=== PATIENT | female | born 1975 | race African-American/Black ===

== ENCOUNTER 2020-07-19 10:16 | Outpatient (REF) | payer MEDICAID, SELFPAY ==
[2020-07-19 11:17] LABS: Hemoglobin 8.3 g/dl (12.0-16.0); Mean Corpuscular HGB Conc 26.8 g/dl (31.0-35.0); Mean Corpuscular Hemoglobin 17.7 pg (27.0-33.0); Mean Corpuscular Volume 66.1 fL (80-98); Mean Platelet Volume 9.4 fL (9.4-12.3); Platelet Count 593 X10*3/uL (160-400); Red Blood Count 4.69 X10*6/uL (4.20-5.50); Red Cell Distribution Width 18.1 % (11.0-16.0); White Blood Count 4.9 X10*3/uL (4.8-10.8)
[2020-07-19 11:36] LABS: Alanine Aminotransferase 24 U/L (0-31); Albumin Level 4.1 g/dL (3.5-5.0); Alkaline Phosphatase 80 U/L (39-117); Anion Gap 14 (12-20); Aspartate Amino Transferase 21 U/L (5-31); Bilirubin Total 0.6 mg/dL (0.0-1.0); Blood Urea Nitrogen 14 mg/dL (9-16); Calcium 9.3 mg/dL (8.4-10.2); Carbon Dioxide 30 mmol/L (22-29); Chloride 100 mmol/L (96-108); Cholesterol 178 mg/dL; Estimated Glomerular Filt Rate > 60; Glucose Random 93 mg/dL (60-115); HDL Cholesterol 41 mg/dL; LDL Cholesterol Calculated 118 mg/dl; Potassium 3.9 mmol/L (3.3-5.1); Sodium 140 mmol/L (135-145); Total Protein 7.6 g/dL (6.5-8.0); Triglycerides 99 mg/dL
[2020-07-19 11:59] LABS: Vitamin D 25-OH Total 25.6 ng/mL (>30)
[2020-07-19 12:00] LABS: Ferritin < 1 ng/mL (10-250)
[2020-07-21 03:40] LABS: HIV AB/AG Nonreactive (Nonreactive); HIV Num 1 0.06 S/CO (0.00-0.99)
[2020-07-21 18:11] LABS: C. trachomatis RNA TMA NOT DETECTED (NOT DETECTED); N. gonorrhoeae RNA TMA NOT DETECTED (NOT DETECTED)
== END 2020-07-19 10:17 | disposition home or self-care (01) ==
LOC: HO.LAB 10:16
PROVIDERS: PCP Family Medicine; Visit Provider Family Medicine
DX: D50.0 Iron deficiency anemia secondary to blood loss (chronic) (principal); E55.9 Vitamin D deficiency, unspecified; I10 Essential (primary) hypertension; Z11.3 Encounter for screening for infections with a predominantly sexual mode of transmission
CPT/HCPCS: 36415; 80053; 80061; 82306; 82728; 85027; 87389; 87491; 87591

== ENCOUNTER 2023-03-18 11:03 | Outpatient (REF) | payer MEDICAID, SELFPAY ==
[2023-03-18 13:40] LABS: MANUAL DIFF FLAG NO
[2023-03-18 13:47] LABS: Basophils Percent Auto 0.6 % (0-2); Eosinophils Absolute Auto 0.2 X10*3/uL (0.0-0.4); Eosinophils Percent Auto 2.7 % (0-4); Hematocrit 39.8 % (37.0-47.0); Hemoglobin 12.7 g/dl (12.0-16.0); Imm Gran Abs Auto 0.02 X10*3/uL (0.00-0.03); Imm Gran Pct Auto 0.3 % (0.0-0.4); Lymphocytes Absolute Auto 2.3 X10*3/uL (1.2-4.9); Lymphocytes Percent Auto 32.1 % (20-40); Mean Corpuscular HGB Conc 31.9 g/dl (31.0-35.0); Mean Corpuscular Hemoglobin 28.2 pg (27.0-33.0); Mean Corpuscular Volume 88.4 fL (80.0-98.0); Mean Platelet Volume 10.6 fL (9.4-12.3); Monocytes Absolute Auto 0.6 X10*3/uL (0.1-1.2); Monocytes Percent Auto 8.9 % (2-11); Neutrophils Absolute Auto 3.9 x10*3/uL (2.0-8.3); Neutrophils Percent Auto 55.4 % (45-73); Platelet Count 358 X10*3/uL (160-400); Red Cell Distribution Width 13.2 % (11.0-16.0); White Blood Count 7.1 X10*3/uL (4.8-10.8)
[2023-03-18 14:03] LABS: Iron 57 mcg/dL (30-160); Percent Iron Saturation 15 % (15-50); Total Iron Binding Capacity 391 mcg/dL (228-428); Unsaturated Iron Binding 334 ug/dL
[2023-03-18 14:12] LABS: Estimated Average Glucose 111 mg/dL; Hemoglobin A1c % 5.5 % (<6.0)
[2023-03-18 14:23] LABS: Vitamin B12 391 pg/mL (200-900)
[2023-03-18 14:29] LABS: Ferritin 15 ng/mL (10-250); TSH reflex Free T4 1.43 uIU/mL (0.32-4.0)
[2023-03-18 15:10] LABS: CT PCR NOT DETECTED (Not Detect.); NG PCR NOT DETECTED (Not Detect.)
[2023-03-21 03:51] LABS: HIV AB/AG Nonreactive (Nonreactive); HIV Num 1 0.05 S/CO (0.00-0.99); ~HepC Num1 0.06 S/CO (0.00-0.79); ~Hepatitis C Antibody Nonreactive (Nonreactive)
[2023-03-21 11:18] LABS: RPR Rapid Plasma Reagin NON-REACTIVE (NON-REACTIVE)
== END 2023-03-18 11:04 | disposition home or self-care (01) ==
LOC: HO.HHCL 11:03
PROVIDERS: Visit Provider Family Medicine
DX: Z11.3 Encounter for screening for infections with a predominantly sexual mode of transmission (principal); Z11.4 Encounter for screening for human immunodeficiency virus [HIV]; D64.9 Anemia, unspecified; E55.9 Vitamin D deficiency, unspecified; E66.01 Morbid (severe) obesity due to excess calories
CPT/HCPCS: 0353U; 82306; 82607; 82728; 83036; 83540; 84443; 85025; 86592; 86803; 87389